=== PATIENT | male | born 1950 | race Caucasian/White ===

== ENCOUNTER 2024-02-27 08:44 | Inpatient (IN) | payer MEDICARE, OTHER ==
[2024-02-27] MEDS ORDERED: Zolpidem Tartrate 5 MG TAB PO PRN (14:47)
[2024-02-27] MEDS ORDERED: Ondansetron ODT 4 MG TAB SL PRN (14:49)
[2024-02-27] MEDS: Gabapentin 400 MG CAP PO SCH (16:00)
[2024-02-27] MEDS: Ibuprofen 200 MG TAB PO SCH (16:02)
[2024-02-27] MEDS: HYDROcodone/Acetaminophen 5/325 mg Tablet PO PRN (17:13)
[2024-02-27] MEDS: Acetaminophen 325 MG TAB PO SCH (18:52)
[2024-02-27] MEDS: Famotidine 20 MG TAB PO SCH (21:46)
[2024-02-27] MEDS: Rosuvastatin 10 MG TAB PO SCH (21:46)
[2024-02-27] MEDS: Fluticasone Propionate Nasal Spray 16 gm Bottle NASAL SCH (21:47)
[2024-02-27] MEDS: tiZANidine HCl 4 MG TAB PO PRN (22:04)
[2024-02-28] MEDS: Levothyroxine Sodium 75 MCG TAB PO SCH (05:41)
[2024-02-28 06:21] LABS: ALT (SGPT) 23 U/L (8-55); AST (SGOT) 29 U/L (5-34); Albumin 3.5 g/dL (3.4-4.8); Alkaline Phosphatase 105 U/L (40-110); Anion Gap 14 mmol/L (10-20); BUN (Urea Nitrogen) 16 mg/dL (8.4-25.7); Bilirubin, Total 0.5 mg/dL (0.2-1.2); Calc. Creatinine Clearance 127 mL/min (70-130); Calcium 9.3 mg/dL (7.8-10.44); Carbon Dioxide 23 mmol/L (23-31); Chloride 108 mmol/L (98-107); Estimated GFR 93; Globulin 2.5 g/dL (2.4-3.5); Glucose 89 mg/dL (83-110); Potassium 4.1 mmol/L (3.5-5.1); Sodium 141 mmol/L (136-145)
[2024-02-28 06:28] LABS: #Basophils 0.1 thou/uL (0.0-0.2); #Eosinphils 0.4 thou/uL (0.0-0.7); #Lymphocytes 1.6 thou/uL (1.20-3.40); #Monocytes 0.5 thou/uL (0.11-0.59); #Neutrophils 2.4 thou/uL (1.40-6.50); %Basophils 1.4 % (0.0-1.0); %Eosinophils 8.4 % (0.0-10.0); %Lymphocytes 31.9 % (21.0-51.0); %Monocytes 10.7 % (0.0-10.0); %Neutrophils 47.7 % (42.0-75.0); Hematocrit 42.8 % (42.0-52.0); Mean Corpuscular HGB CONC 30.5 g/dL (32.0-36.0); Mean Corpuscular Volume 95.2 fl (78.0-98.0); Mean Platelet Volume 6.8 fL (7.4-10.4); Platelet Count 56 10x3/uL (130-400); RBC Distribution Width 13.3 % (11.5-14.5)
[2024-02-28] MEDS: Lidocaine 4% Patch TD SCH (08:34)
[2024-02-28] MEDS: Potassium Chloride 10 MEQ TAB PO SCH (08:57)
[2024-02-28] MEDS: Loratadine 10 MG TAB PO SCH (08:57)
[2024-02-28] MEDS: Enoxaparin 40 MG (0.4 mL) SYRINGE SC SCH (08:59)
[2024-02-28] MEDS ORDERED: Lidocaine 4% Patch TD SCH (09:00)
[2024-02-28] MEDS: Finasteride 5 MG TAB PO SCH (09:01)
[2024-02-28] MEDS: Tamsulosin HCl 0.4 MG CAP PO SCH (09:01)
[2024-02-28] MEDS: Cholecalciferol 1,000 UNITS (25 MCG) TAB PO SCH (09:01)
[2024-02-28] MEDS: Amlodipine 10 MG TAB PO SCH (09:02)
[2024-02-28] MEDS: FLUoxetine HCl 20 MG CAP PO SCH (09:13)
[2024-02-28] MEDS: Transdermal Patch Removal TOP SCH (20:44)
[2024-02-29] MEDS: Diclofenac 1% 100 GM Topical GEL TP SCH (10:33)
[2024-03-01 06:08] LABS: #Basophils 0.1 thou/uL (0.0-0.2); #Eosinphils 0.5 thou/uL (0.0-0.7); #Lymphocytes 1.6 thou/uL (1.20-3.40); #Monocytes 0.7 thou/uL (0.11-0.59); #Neutrophils 2.6 thou/uL (1.40-6.50); %Basophils 1.4 % (0.0-1.0); %Eosinophils 9.8 % (0.0-10.0); %Lymphocytes 28.9 % (21.0-51.0); %Monocytes 13.2 % (0.0-10.0); %Neutrophils 46.6 % (42.0-75.0); Hematocrit 37.3 % (42.0-52.0); Hemoglobin 11.9 g/dL (14.0-18.0); Mean Corpuscular HGB CONC 31.9 g/dL (32.0-36.0); Mean Corpuscular Hemoglobin 29.7 pg (27.0-31.0); Mean Corpuscular Volume 93.2 fl (78.0-98.0); Mean Platelet Volume 6.3 fL (7.4-10.4); Platelet Count 142 10x3/uL (130-400); White Blood Cell (WBC) Count 5.5 10x3/uL (4.8-10.8)
[2024-03-01] MEDS: HYDROcodone/Acetaminophen 5/325 mg Tablet PO PRN (09:11)
[2024-03-01] MEDS: Enoxaparin 40 MG (0.4 mL) SYRINGE SC SCH (15:01)
[2024-03-02] MEDS: Enoxaparin 40 MG (0.4 mL) SYRINGE SC SCH (10:32)
[2024-03-04 03:44] VITALS: BMI 32.8
[2024-03-04] MEDS: Polyethylene Glycol 3350 17 GM Packet PO SCH (10:33)
[2024-03-05] MEDS: Polyethylene Glycol 3350 17 GM Packet PO SCH (07:56)
[2024-03-08 05:55] LABS: #Basophils 0.1 thou/uL (0.0-0.2); #Eosinphils 0.4 thou/uL (0.0-0.7); #Lymphocytes 2.1 thou/uL (1.20-3.40); #Monocytes 0.7 thou/uL (0.11-0.59); #Neutrophils 3.7 thou/uL (1.40-6.50); %Basophils 1.1 % (0.0-1.0); %Eosinophils 6.1 % (0.0-10.0); %Monocytes 10.3 % (0.0-10.0); %Neutrophils 52.6 % (42.0-75.0); Hemoglobin 11.9 g/dL (14.0-18.0); Mean Corpuscular HGB CONC 31.3 g/dL (32.0-36.0); Mean Corpuscular Hemoglobin 29.3 pg (27.0-31.0); Mean Corpuscular Volume 93.5 fl (78.0-98.0); Mean Platelet Volume 6.6 fL (7.4-10.4); Platelet Count 126 10x3/uL (130-400); RBC Distribution Width 13.3 % (11.5-14.5); Red Blood Cell (RBC) Count 4.06 mill/uL (4.70-6.10)
[2024-03-08 06:10] LABS: Anion Gap 12 mmol/L (10-20); BUN (Urea Nitrogen) 18 mg/dL (8.4-25.7); Calc. Creatinine Clearance 135 mL/min (70-130); Calcium 9.2 mg/dL (7.8-10.44); Carbon Dioxide 24 mmol/L (23-31); Chloride 110 mmol/L (98-107); Estimated GFR 95; Glucose 88 mg/dL (83-110); Potassium 3.7 mmol/L (3.5-5.1); Sodium 142 mmol/L (136-145)
[2024-03-08] MEDS: BuPROPion XL 150 MG ER.TAB PO SCH (08:01)
[2024-03-13] MEDS: Furosemide 20 MG TAB PO SCH (09:22)
[2024-03-13 10:59] VITALS: BMI 34.6
[2024-03-14 08:03] VITALS: BP 136/74
[2024-03-14 08:07] VITALS: TEMP 97.6
== END 2024-03-14 12:10 | disposition home health service (06) | DRG 948 ==
LOC: NAV ACUTE 14:14
PROVIDERS: ADMIT Family Medicine; ATTEND Family Medicine
DX: R53.81 Other malaise (principal); E03.9 Hypothyroidism, unspecified; I10 Essential (primary) hypertension; M19.90 Unspecified osteoarthritis, unspecified site; Z96.653 Presence of artificial knee joint, bilateral; Z98.890 Other specified postprocedural states; Z88.8 Allergy status to other drugs, medicaments and biological substances; Z79.899 Other long term (current) drug therapy; D69.6 Thrombocytopenia, unspecified; K59.00 Constipation, unspecified; F32.A Depression, unspecified
CPT/HCPCS: 36415; 72100; 80048; 80053; 85025; J1650